=== PATIENT | male | born 1995 | race Caucasian/White ===

== ENCOUNTER 2025-03-19 08:49 | Outpatient (AMB) | payer OTHER, SELFPAY ==
[2025-03-19 08:52] VITALS: BMI 27.2
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
--- OUTSIDE RECORDS SUMMARY | 2025-03-19 09:16 | XMS_ITS | Clinical Summary ---
Author Organization [facility] Address [address] [place] [address] Care Team Providers Care Phlebotomy Instructor Name Role Phone Unavailable Primary Care Provider Unavailabl e Medications Medication Sig Dispensed Refills Start Date End Date Status rivaroxaban (Xarelto) 10 MG tablet Take 1 tablet (10 mg total) by mouth daily. 30 tablet 6 01/11/2024 Active albuterol 108 (90 Base) MCG/ACT inhaler Inhale 2 puffs into the lungs every 6 (six) hours as needed for wheezing. 1 each 1 01/11/2024 Active Active Problems No known active problems Social History Tobacco Use Types Packs/Day Years Used Date Smoking Tobacco: Never Assessed Sex and Gender Information Value Date Recorded Sex Assigned at Not on file Gender Identity Not on file Sexual Orientation Not on file Job Start Date Occupation Industry Not on file Not on file Not on file Last Filed Vital Signs Vital Sign Reading Time Taken Comments Blood Pressure 134/67 01/10/2024 9:27 AM EDT Pulse 61 01/10/2024 9:27 AM EDT Temperature 36.7 C (98.1 F) 01/10/2024 9:27 AM EDT Respiratory Rate - - Oxygen Saturation 97% 01/10/2024 9:27 AM EDT Inhaled Oxygen Concentration - - Weight 84.4 kg (186 lb) 01/10/2024 9:27 AM EDT Height 180.3 cm (5' 11 ) 09/20/2023 8:53 AM EDT Body Mass Index 25.94 09/20/2023 8:53 AM EDT Plan of Treatment Health Maintenance Due Date Last Done Comments Hepatitis C Screening 1994 COVID-19 Vaccine (#1) 1994 Depression Screening 2006 Preventative Health Evaluation 01/17/2012 DTap / Tdap / Td (2 - Td or Tdap) 11/29/2022 11/29/2012 Influenza Vaccine (#1) 2024 Hepatitis B Vaccines Completed 12/09/2016, 07/22/2016, 06/11/2016 Pneumococcal Vaccine Aged Out No long er eligible based on patient's age to complete this topic RSV Ped < 20 months Aged Out No longe r eligible based on patient's age to complete this topic
--- OUTSIDE RECORDS SUMMARY | 2025-03-19 09:16 | XMS_ITS | Clinical Summary ---
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 for severe pain Active albuterol HFA (PROAIR HFA ; PROVENTIL HFA ; VENTOLIN HFA) 90 mcg/actuation inhaler Inhale 2 puffs by mouth every 6 (six) hours if needed for wheezing. 6.7 g 11 03/21/2024 Active apixaban (Eliquis) 5 mg tablet Take 1 tablet (5 mg total) by mouth 2 (two) times a day. 60 each 11 03/21/2024 Active traZODone (DESYREL) 100 mg tablet Take 1 tablet (100 mg total) by mouth. 02/10/2024 Active Xarelto 10 mg tablet TAKE 1 TABLET BY MOUTH EVERY DAY 30 tablet 6 01/15/2025 Active Encounters Date Type Department Care Team Description 02/07/2025 1:59 PM EDT - 02/07/2025 11:59 PM EDT Hospital Encounter [facility] Xray [address] [place] [address] Pain in left lower leg; Pain in right hip Discharge Disposition: Home or Self Care 02/07/2025 1:58 PM EDT - 02/07/2025 11:59 PM EDT Hospital Encounter [facility] Xray [address] [place] [address] Pain in left lower leg; Pain in right hip; Unspecified lump in the right breast, unspecified quadrant Discharge Disposition: Home or Self Care from Last 3 Months Social History Tobacco Use Types Packs/Day Years Used Date Smoking Tobacco: Never Assessed Sex and Gender Information Value Date Recorded Sex Assigned at Not on file Legal Sex Male 3:52 AM EST Gender Identity Not on file Sexual Orientation Not on file Obstetrics History Last Filed Vital Signs Vital Sign Reading Time Taken Comments Blood Pressure 127/61 06/07/2024 8:35 AM EST Pulse 67 06/07/2024 8:35 AM EST Temperature 36.6 C (97.8 F) 06/07/2024 8:35 AM EST Respiratory Rate - - Oxygen Saturation 96% 06/07/2024 8:35 AM EST Inhaled Oxygen Concentration - - Weight 88.5 kg (195 lb) 06/07/2024 8:35 AM EST Height 180.3 cm (5' 11 ) 09/20/2023 8:53 AM EDT Body Mass Index 27.2 09/20/2023 8:53 AM EDT Plan of Treatment Health Maintenance Due Date Last Done Comments Pneumococcal Vaccine: Pediatrics (0 to 5 Years) and At-Risk Patients (6 to 49 Years) (1 of 2 - PCV) 2013 HPV Vaccines (3 - Male 3-dose series) 11/08/2016 06/11/2016, 05/11/2016 Hepatitis C Screening 03/28/2022 Social Influencers of Health Screening 03/28/2022 DTaP,Tdap,and Td Vaccines (2 - Td or Tdap) 11/29/2022 11/29/2012 Depression Screening 04/25/2024 COVID-19 Vaccine ( - season) 2024 02/08/2022, 12/10/2020, 05/14/2020, Additional history exists Influenza Vaccine (#1) 2024 04/22/2022, 2018 Cholesterol Screening (Lipid Panel) 02/05/2030 02/05/2025 RSV Immunization Adult Patients (1 - 1-dose 75+ series) 2069 Hepatitis B Vaccines Completed 12/09/2016, 07/22/2016, 06/11/2016 Meningococcal ACWY Vaccine Aged Out 12/20/2016 N o longer eligible based on patient's age to complete this topic HIV Screening Completed 02/05/2025 HIB Vaccines Aged Out No longer eligi ble based on patient's age to complete this topic Hepatitis A Vaccines Aged Out No long er eligible based on patient's age to complete this topic IPV Vaccines Aged Out No longer eligi ble based on patient's age to complete this topic MMR Vaccines Aged Out No longer eligi ble based on patient's age to complete this topic Meningococcal B Vaccine Aged Out No l onger eligible based on patient's age to complete this topic RSV Immunization Patients Under 20 months Aged Out No longer eligible based on patient's age to complete this topic Varicella Vaccines Aged Out No longer eligible based on patient's age to complete this topic Procedures Procedure Name Priority Date/Time Associated Diagnosis Comments XR HIP 2-3 VIEWS RIGHT Routine 2:45 PM EDT Pain in left lower leg Pain in right hip XR TIBIA FIBULA 2 VIEWS LEFT Routine 02/07/2025 2:44 PM EDT Pain in left lower leg URINALYSIS WITH REFLEX MICROSCOPIC Routine 02/05/2025 1:41 PM EDT Hypogonadism male Routine general medical examination at a health care facility Screening for lipoid disorders Screening for diabetes mellitus Avitaminosis D Screening for thyroid disorder High-risk sexual behavior URINALYSIS WITH REFLEX MICROSCOPIC Routine 02/05/2025 1:41 PM EDT Hypogonadism male Routine general medical examination at a health care facility Screening for lipoid disorders Screening for diabetes mellitus Avitaminosis D Screening for thyroid disorder High-risk sexual behavior CHLAMYDIA TRACHOMATIS AND NEISSERIA GONORRHOEAE PCR Routine 02/05/2025 1:41 PM EDT High-risk sexual behavior CBC WITH AUTO DIFFERENTIAL Routine 02/05/2025 1:33 PM EDT Hypogonadism male Routine general medical examination at a health care facility Screening for lipoid disorders Screening for diabetes mellitus Avitaminosis D Screening for thyroid disorder High-risk sexual behavior THYROID STIMULATING HORMONE Routine 02/05/2025 1:33 PM EDT Hypogonadism male Routine general medical examination at a health care facility Screening for lipoid disorders Screening for diabetes mellitus Avitaminosis D Screening for thyroid disorder High-risk sexual behavior VITAMIN D 25 HYDROXY Routine 02/05/2025 1:33 PM EDT Hypogonadism male Routine general medical examination at a health care facility Screening for lipoid disorders Screening for diabetes mellitus Avitaminosis D Screening for thyroid disorder High-risk sexual behavior HEMOGLOBIN A1C Routine 02/05/2025 1:33 PM EDT Hypogonadism male Routine general medical examination at a [facility] care facility Screening for lipoid disorders Screening for diabetes mellitus Avitaminosis D Screening for thyroid disorder High-risk sexual behavior LIPID PANEL WITH REFLEX TO DIRECT LDL Routine 02/05/2025 1:33 PM EDT Hypogonadism male Routine general medical examination at a [facility] care facility Screening for lipoid disorders Screening for diabetes mellitus Avitaminosis D Screening for thyroid disorder High-risk sexual behavior COMPREHENSIVE METABOLIC PANEL Routine 02/05/2025 1:33 PM EDT Hypogonadism male Routine general medical examination at a [facility] care facility Screening for lipoid disorders Screening for diabetes mellitus Avitaminosis D Screening for thyroid disorder High-risk sexual behavior CBC AND DIFFERENTIAL Routine 02/05/2025 1:33 PM EDT Hypogonadism male Routine general medical examination at a health care facility Screening for lipoid disorders Screening for diabetes mellitus Avitaminosis D Screening for thyroid disorder High-risk sexual behavior LUTEINIZING HORMONE Routine 02/05/2025 1 :33 PM EDT Hypogonadism male Routine general medical examination at a health care facility Screening for lipoid disorders Screening for diabetes mellitus Avitaminosis D Screening for thyroid disorder High-risk sexual behavior FOLLICLE STIMULATING HORMONE Routine 02/05/2025 1:33 PM EDT Hypogonadism male Routine general medical examination at a health care facility Screening for lipoid disorders Screening for diabetes mellitus Avitaminosis D Screening for thyroid disorder High-risk sexual behavior SEX HORMONE BINDING GLOBULIN Routine 02/05/2025 1:33 PM EDT Hypogonadism male Routine general medical examination at a [facility] facility Screening for lipoid disorders Screening for diabetes mellitus Avitaminosis D Screening for thyroid disorder High-risk sexual behavior TESTOSTERONE FREE, BIOAVAILABLE AND TOTAL Routine 02/05/2025 1:33 PM EDT Hypogonadism male Routine general medical examination at a [facility] facility Screening for lipoid disorders Screening for diabetes mellitus Avitaminosis D Screening for thyroid disorder High-risk sexual behavior HEPATITIS B CORE ANTIBODY IGM Routine 02/05/2025 1:33 PM EDT High-risk sexual behavior HERPES SIMPLEX VIRUS 1 AND 2, IGG Routine 02/05/2025 1:33 PM EDT High-risk sexual behavior TREPONEMA PALLIDUM ANTIBODY WITH REFLEX TO RPR AND PARTICLE AGGLUTINATION Routine 02/05/2025 1:33 PM EDT High-risk sexual behavior HIV 1, 2 ANTIBODY, P24 ANTIGEN WITH REFLEX TO DIFFERENTIATION Routine 02/05/2025 1:33 PM EDT High-risk sexual behavior from Last 3 Months Results * XR Hip 2-3 Views Right (02/07/2025 2:45 PM EDT) Anatomical Region Laterality Modality Lower Extremities, Hip Right Radiograp hic Imaging 02/12/2025 7:49 AM EDT Impressions 02/12/2025 7:50 AM EDT No acute findings. There is evidence of calcific tendinitis and calcific bursitis. Code 39907 -------- FINAL REPORT -------- Dictated By: Tom Zaidi Dictated Date: 02/12/2025 07:49 ET Assigned Physician: Tom Zaidi Reviewed and Electronically Signed By: Tom Zaidi Signed Date: 02/12/2025 07:50 ET Workstation ID: [id number] Transcribed By: Self Edit Transcribed Date: 02/12/2025 07:49 ET Narrative 02/12/2025 7:50 AM EDT HISTORY: The patient is a 30-year-old male with right hip pain. No history of trauma is provided. FINDINGS: AP radiograph the pelvis, along with coned-down AP and external rotation-abduction views of the right hip, are obtained. The study demonstrates no fracture, dislocation, arthritic change, or other bony abnormality. Soft tissue calcification just lateral to the hip joints bilaterally consistent with calcific bursitis. There is also a soft tissue calcification adjacent to the greater trochanter of the right femur consistent with calcific tendinitis. Procedure Note Tom Zaidi MD - 02/12/2025 HISTORY: The patient is a 30-year-old male with right hip pain. No historyof trauma is provided. FINDINGS: AP radiograph the pelvis, along with coned-down AP and externalrotation-abduction views of the right hip, are obtained. The studydemonstrates no fracture, dislocation, arthritic change, or other bonyabnormality. Soft tissue calcification just lateral to the hip jointsbilaterally consistent with calcific bursitis. There is also a soft tissuecalcification adjacent to the greater trochanter of the right femurconsistent with calcific tendinitis. IMPRESSION: No acute findings. There is evidence of calcific tendinitis and calcificbursitis. Code 14815 -------- FINAL REPORT -------- Dictated By: Tom Zaidi Dictated Date: 02/12/2025 07:49 ET Assigned Physician: Tom Zaidi Reviewed and Electronically Signed By: Tom Zaidi Signed Date: 02/12/2025 07:50 ET Workstation ID: [id number] Transcribed By: Self Edit Transcribed Date: 02/12/2025 07:49 ET us Chantal DIEZ IMG XR PROCEDURES Final Result * XR Tibia Fibula 2 Views Left (02/07/2025 2:44 PM EDT) Anatomical Region Laterality Modality Lower Extremities, Lower Leg Left Rad iographic Imaging 02/12/2025 7:48 AM EDT Impressions 02/12/2025 7:49 AM EDT Normal examination. -------- FINAL REPORT -------- Dictated By: Tom Zaidi Dictated Date: 02/12/2025 07:48 ET Assigned Physician: Tom Zaidi Reviewed and Electronically Signed By: Tom Zaidi Signed Date: 02/12/2025 07:49 ET Workstation ID: [id number] Transcribed By: Self Edit Transcribed Date: 02/12/2025 07:48 ET Narrative 02/12/2025 7:49 AM EDT HISTORY: The patient is a 30-year-old male with left lower leg pain. No history of trauma is provided. FINDINGS: AP and lateral radiographs of the left tibia and fibula are obtained. The study demonstrates no fracture, dislocation, arthritic change, osteolytic or osteoblastic lesion, or other bony abnormality. No soft tissue abnormality is seen. Procedure Note Tom Zaidi MD - 02/12/2025 HISTORY: The patient is a 30-year-old male with left lower leg pain. Nohistory of trauma is provided. FINDINGS: AP and lateral radiographs of the left tibia and fibula areobtained. The study demonstrates no fracture, dislocation, arthriticchange, osteolytic or osteoblastic lesion, or other bony abnormality. Nosoft tissue abnormality is seen. IMPRESSION: Normal examination. -------- FINAL REPORT -------- Dictated By: Tom Zaidi Dictated Date: 02/12/2025 07:48 ET Assigned Physician: Tom Zaidi Reviewed and Electronically Signed By: Tom Zaidi Signed Date: 02/12/2025 07:49 ET Workstation ID: [id number] Transcribed By: Self Edit Transcribed Date: 02/12/2025 07:48 ET Chantal DIEZ IMG XR PROCEDURES Final Result * Urinalysis with reflex microscopic (02/05/2025 1:41 PM EDT) Specific [place] Urine 1.027 1.003 - 1.030 LAB URINALYSIS - AUTOMATED METHOD 02/05/2025 2:44 PM EDT [facility] pH, Urine 5.5 5.0 - 8.0 pH LAB URINALYSIS - AUTOMATED METHOD 02/05/2025 2:44 PM EDT [facility] Leukocytes, Urine Negative Negative LAB URINALYSIS - AUTOMATED METHOD 02/05/2025 2:44 PM EDT [facility] Nitrite, Urine Negative Negative LAB URINALYSIS - AUTOMATED METHOD 02/05/2025 2:44 PM EDT [facility] Protein, Urine Negative <=Trace mg/dL LAB URINALYSIS - AUTOMATED METHOD 02/05/2025 2:44 PM EDT [facility] Glucose, Urine Negative Negative mg/dL LAB URINALYSIS - AUTOMATED METHOD 02/05/2025 2:44 PM T [facility] Ketones, Urine Negative Negative mg/dL LAB URINALYSIS - AUTOMATED METHOD 02/05/2025 2:44 PM EDT [facility] Urobilinogen, Urine 0.2 0.2 - 1.0 mg/dL LAB URINALYSIS - AUTOMATED METHOD 02/05/2025 2:44 PM T [facility] Bilirubin, Urine Negative Negative LAB URINALYSIS - AUTOMATED METHOD 02/05/2025 2:44 PM T [facility] Blood, Urine Negative Negative LAB URINALYSIS - AUTOMATED METHOD 02/05/2025 2:44 PM EDT [facility] Urine Urine specimen obtained by clean catch procedure / Unknown Non-blood Collection / Unknown 02/05/2025 1:41 PM EDT 02/05/2025 2:38 PM EDT us Stevie Saldana [employer] LAB URINE ORDERABLES Final Re sult [facility] [address] [place] [address], * Chlamydia trachomatis and Neisseria gonorrhoeae molecular study (02/05/2025 1:41 PM EDT) Neisseria gonorrhoeae PCR Negative Negative LAB MOLECULAR DIAGNOSTICS METHOD 02/06/2025 10:04 AM EDT [facility] Chlamydia trachomatis PCR Negative Negative LAB MOLECULAR DIAGNOSTICS METHOD 02/06/2025 10:04 AM EDT [facility] Urine Urine specimen from urethra / Unknown Non-blood Collection / Unknown 02/05/2025 1:41 PM EDT 02/05/2025 2:38 PM EDT us Steive Saldana NP LAB MICROBIOLOGY - GENERAL OR DERABLES Final Result Performing Organization Address [facility]/ZIP Co de Phone Number [facility] [address] [place] [address], [place] [phone] * HIV 1,2 antibody, p24 antigen with reflex to differentiation (02/05/2025 1:33 PM EDT) Pathologist [facility] HIV Combo AB/AG Negative Negative LAB CHEMISTRY METHOD 02/05/2025 6:56 PM EDT [facility] Blood Venous blood specimen / Unknown Venipuncture / Unknown 02/05/2025 1:33 PM EDT 02/05/2025 2:37 PM EDT Narrative [facility] - 02/05/2025 6:56 PM EDT This assay is a 4th generation assay allowing for earlier detection of HIV infection by detecting the presence of the HIV-1 p24 antigen as well as the traditional antibodies to HIV type 1 (including group O) and type 2. Use of a 4th generation assay is the current CDC recommendation for HIV screening. us Stevie Saldana NP LAB BLOOD ORDERABLES Final Re sult Performing Organization Address [facility]/ZIP Co de Phone Number [facility] [address] [place] [address], [place] [phone] * Treponema pallidum antibody with reflex to RPR and particle agglutination (02/05/2025 1:33 PM EDT) T. Pallidum Antibodies Negative Negative LAB CHEMISTRY METHOD 02/05/2025 8:46 PM EDT [facility] Blood Venous blood specimen / Unknown Venipuncture / Unknown 02/05/2025 1:33 PM EDT 02/05/2025 2:37 PM EDT us Stevie Saldana [employer] LAB BLOOD ORDERABLES Final Re sult [facility] [address] [place] [address], [place] [phone] * Lipid panel with reflex to direct LDL (02/05/2025 1:33 PM EDT) Cholesterol 169 0 - 200 mg/dL LAB CHEMISTRY METHOD 02/05/2025 5:59 PM EDT [facility] Triglycerides 54 0 - 150 mg/dL LAB CHEMISTRY METHOD 02/05/2025 5:59 PM EDT [facility] HDL 58 >=40 mg/dL LAB CHEMISTRY METHOD 02/05/2025 5:59 PM EDT [facility] LDL Calculated 100 0 - 100 mg/dL LAB CHEMISTRY METHOD 02/05/2025 5:59 PM EDT [facility] Comment:Estimated LDL Calcul ated using equation: Total cholesterol - HDL cholesterol - (Triglycerides/5) VLDL Cholesterol Mina 10.8 mg/dL LAB CHEMISTRY METHOD 02/05/2025 5:59 PM EDT [facility] Non HDL Chol. (LDL+VLDL) 111 <145 mg/dL LAB CHEMISTRY METHOD 02/05/2025 5:59 PM EDT [facility] Chol/HDL Ratio 2.9 0.0 - 4.4 LAB CHEMISTRY METHOD 02/05/2025 5:59 PM EDT [facility] Blood Venous blood specimen / Unknown Venipuncture / Unknown 02/05/2025 1:33 PM EDT 02/05/2025 2:37 PM EDT us Stevie Saldana NP LAB BLOOD ORDERABLES Final Re sult [facility] [address] [place] [address], [place] [phone] * Testosterone free, bioavailable and total (02/05/2025 1:33 PM EDT) Testosterone 384 229 - 902 ng/dL LAB CHEMISTRY METHOD 02/05/2025 8:35 PM EDT [facility] Testosterone, Free 8.3 4.6 - 22.4 ng/dL LAB CHEMISTRY METHOD 02/05/2025 8:35 PM EDT [facility] Testosterone, Bioavailable 199 110 - 575 ng/dL LAB CHEMISTRY METHOD 02/05/2025 8:35 PM EDT [facility] Sex Hormone Binding 28.9 See Comment nmol/L LAB CHEMISTRY METHOD 02/05/2025 8:35 PM EDT [facility] Comment: FEMALES: pre-menopausal 10.8 - >180 post-menopausal 23.2 - 159.1 MALES: 21-49 years 14.6 - 94.6 50-89 years 21.6 - 113.1 CHILDREN: No established reference range Over the counter supplements containing high doses of biotin may interfere with this assay. If interference is suspected, patients should be retested after refraining from biotin supplements for 72 hours. Albumin 4.4 3.2 - 5.0 g/dL LAB CHEMISTRY METHOD 02/05/2025 8:35 PM EDT [facility] Blood Venous blood specimen / Unknown Venipuncture / Unknown 02/05/2025 1:33 PM EDT 02/05/2025 2:37 PM EDT us Stevie M Borhot [employer] LAB BLOOD ORDERABLES Final Re sult Performing Organization Address [facility]/ZIP Co de Phone Number [facility] [address] [place] [address], * Herpes simplex virus 1 and 2, IgG (02/05/2025 1:33 PM EDT) HSV 1 IgG 0.15 <=0.90 index namrata LAB CHEMISTRY METHOD 02/06/2025 9:24 AM EDT [facility] HSV-1 IgG Interpretation Negative Negative LAB CHEMISTRY METHOD 02/06/2025 9:24 AM EDT [facility] HSV 2 IgG 0.15 <=0.90 index namrata LAB CHEMISTRY METHOD 02/06/2025 9:24 AM EDT [facility] HSV-2 IgG Interpretation Negative Negative LAB CHEMISTRY METHOD 02/06/2025 9:24 AM EDT [facility] Blood Venous blood specimen / Unknown Venipuncture / Unknown 02/05/2025 1:33 PM EDT 02/05/2025 2:37 PM EDT Stevie Saldana [employer] LAB BLOOD ORDERABLES Final Re sult Performing Organization Address [facility]/ZIP Co de Phone Number [facility] [address] [place] [address], [place] [phone] * Sex hormone binding globulin (02/05/2025 1:33 PM EDT) Sex Hormone Binding 28.9 See Comment nmol/L LAB CHEMISTRY METHOD 02/05/2025 8:35 PM EDT [facility] Comment: FEMALES: pre-menopausal 10.8 - >180 post-menopausal 23.2 - 159.1 MALES: 21-49 years 14.6 - 94.6 50-89 years 21.6 - 113.1 CHILDREN: No established reference range Over the counter supplements containing high doses of biotin may interfere with this assay. If interference is suspected, patients should be retested after refraining from biotin supplements for 72 hours. Blood Venous blood specimen / Unknown Venipuncture / Unknown 02/05/2025 1:33 PM EDT 02/05/2025 2:37 PM EDT us Stevie Saldana [employer] LAB BLOOD ORDERABLES Final Re sult [facility] [address] [place] [address], [place] [phone] * (ABNORMAL) CBC auto differential (02/05/2025 1:33 PM EDT) WBC 11.1(H) 4.8 - 10.8 K/mcL LAB HEMETOLOGY METHOD 02/05/2025 2:48 PM EDT [facility] RBC 5.60(H) 4.50 - 5.50 M/mcL LAB HEMETOLOGY METHOD 02/05/2025 2:48 PM EDT [facility] Hemoglobin 16.8 13.5 - 17.5 g/dL LAB HEMETOLOGY METHOD 02/05/2025 2:48 PM EDT [facility] Hematocrit 50.2 42.0 - 54.0 % LAB HEMETOLOGY METHOD 02/05/2025 2:48 PM EDT [facility] MCV 90.3 79.0 - 98.0 FL LAB HEMETOLOGY METHOD 02/05/2025 2:48 PM EDT [facility] MCH 30.2 27.0 - 32.0 pcg LAB HEMETOLOGY METHOD 02/05/2025 2:48 PM EDT [facility] MCHC 33.5 32.0 - 37.0 g/dL LAB HEMETOLOGY METHOD 02/05/2025 2:48 PM EDT [facility] RDW 12.0 11.0 - 15.0 % LAB HEMETOLOGY METHOD 02/05/2025 2:48 PM EDT [facility] Platelets 252 130 - 400 K/mcL LAB HEMETOLOGY METHOD 02/05/2025 2:48 PM EDT [facility] MPV 10.6 7.0 - 11.0 FL LAB HEMETOLOGY METHOD 02/05/2025 2:48 PM EDT [facility] NRBC 0.0 <1.0 % LAB HEMETOLOGY METHOD 02/05/2025 2:48 PM EDT [facility] NRBC Absolute 0.00 <0.10 K/mcL LAB HEMETOLOGY METHOD 02/05/2025 2:48 PM EDT [facility] Neutrophils Relative 62.9 % LAB HEMETOLOGY METHOD 02/05/2025 2:48 PM EDT [facility] Lymphocytes Relative 28.5 % LAB HEMETOLOGY METHOD 02/05/2025 2:48 PM EDT [facility] Monocytes Relative 6.6 % LAB HEMETOLOGY METHOD 02/05/2025 2:48 PM EDT [facility] Eosinophils Relative 1.2 % LAB HEMETOLOGY METHOD 02/05/2025 2:48 PM EDT [facility] Basophils Relative 0.4 % LAB HEMETOLOGY METHOD 02/05/2025 2:48 PM [facility] Immature Granulocytes Relative 0.4 % LAB HEMETOLOGY METHOD 02/05/2025 2:48 PM EDT [facility] Neutrophils Absolute 7.01(H) 1.50 - 7.00 K/mcL LAB HEMETOLOGY METHOD 02/05/2025 2:48 PM EDT [facility] Lymphocytes Absolute 3.17 1.00 - 5.00 K/mcL LAB [facility]EMETOLOGY [facility] Monocytes Absolute 0.73 0.20 - 1.00 K/mcL LAB HEMETOLOGY METHOD 02/05/2025 2:48 PM EDT [facility] Eosinophils Absolute 0.13 0.00 - 0.50 K/[facility] LAB HEMETOLOGY METHOD 02/05/2025 2:48 PM EDT [facility] Basophils Absolute 0.05 0.00 - 0.20 K/[facility] LAB HEMETOLOGY METHOD 02/05/2025 2:48 PM EDT [facility] Immature Granulocytes Absolute 0.04(H) 0.00 - 0.03 K/[facility] LAB HEMETOLOGY METHOD 02/05/2025 2:48 PM EDT [facility] Blood Venous blood specimen / Unknown Venipuncture / Unknown 02/05/2025 1:33 PM EDT 02/05/2025 2:39 PM EDT Stevie Saldana [employer] LAB BLOOD ORDERABLES Final Re sult Performing Organization Address [facility] de Phone Number [facility] [address] [place] [address], [place] [phone] * Hepatitis B core antibody IgM (02/05/2025 1:33 PM EDT) Hep B Core IgM Negative Negative LAB CHEMISTRY METHOD 02/05/2025 6:56 PM EDT [facility] Blood Venous blood specimen / Unknown Venipuncture / Unknown 02/05/2025 1:33 PM EDT 02/05/2025 2:37 PM EDT Narrative [facility] - 02/05/2025 6:56 PM EDT Over the counter supplements containing high doses of biotin may interfere with this assay. If interference is suspected, patients shoud be retested after refraining from biotin supplements for 72 hours. us Stevie Saldana NP LAB BLOOD ORDERABLES Final Re sult Performing Organization Address [facility]/ZIP Co de Phone Number [facility] [address] [place] [address], [place] [phone] * Vitamin D 25 hydroxy (02/05/2025 1:33 PM EDT) Vit D, 25-Hydroxy 36.1 30.0 - 80.0 ng/mL LAB CHEMISTRY METHOD 02/05/2025 6:16 PM EDT [facility] Blood Venous blood specimen / Unknown Venipuncture / Unknown 02/05/2025 1:33 PM EDT 02/05/2025 2:37 PM EDT Stevie Saldana [employer] LAB BLOOD ORDERABLES Final Re sult Performing Organization Address City/[facility]/ZIP Co de Phone Number [facility] [facility] [address] [place] [address], [place] [phone] * Thyroid stimulating hormone (02/05/2025 1:33 PM EDT) Pathologist [facility] TSH 0.46 0.40 - 4.00 mcIU/mL LAB CHEMISTRY METHOD 02/05/2025 8:36 PM EDT [facility] Blood Venous blood specimen / Unknown Venipuncture / Unknown 02/05/2025 1:33 PM EDT 02/05/2025 2:37 PM EDT Stevie Saldana [employer] LAB BLOOD ORDERABLES Final Re sult [facility] [address] [place] [address], [place] [phone] * Hemoglobin A1c (02/05/2025 1:33 PM EDT) Pathologist [facility] Hemoglobin A1C 5.2 <6.5 % LAB CHEMISTRY METHOD 02/05/2025 9:58 PM EDT [facility] Mean Bld Glu Estim. 103 mg/dL LAB CHEMISTRY METHOD 02/05/2025 9:58 PM EDT [facility] Blood Venous blood specimen / Unknown Venipuncture / Unknown 02/05/2025 1:33 PM EDT 02/05/2025 2:39 PM EDT us Stevie Saldana [employer] LAB BLOOD ORDERABLES Final Re sult [facility] [address] [place] [address], [place] [phone] * Luteinizing hormone (02/05/2025 1:33 PM EDT) Luteinizing Hormone 4.0 1.2 - 10.6 mIU/mL LAB CHEMISTRY METHOD 02/05/2025 5:59 PM EDT [facility] Blood Venous blood specimen / Unknown Venipuncture / Unknown 02/05/2025 1:33 PM EDT 02/05/2025 2:37 PM EDT us Stevie Saldana NP LAB BLOOD ORDERABLES Final Re sult Performing Organization Address [facility]/ZIP Co de Phone Number [facility] [address] [place] [address], [place] [phone] * Follicle stimulating hormone (02/05/2025 1:33 PM EDT) Follicle Stimulating Hormone 2.8 0.7 - 10.8 mIU/mL LAB CHEMISTRY METHOD 02/05/2025 7:43 PM EDT [facility] Blood Venous blood specimen / Unknown Venipuncture / Unknown 02/05/2025 1:33 PM EDT 02/05/2025 2:37 PM EDT Stevie Saldana [employer] LAB BLOOD ORDERABLES Final Re sult [facility] [address] [place] [address], [place] [phone] * Comprehensive metabolic panel (02/05/2025 1:33 PM EDT) Sodium 140 133 - 145 mmol/L LAB CHEMISTRY METHOD 02/05/2025 5:59 PM [facility] Potassium 4.2 3.5 - 5.5 mmol/L LAB CHEMISTRY METHOD 02/05/2025 5:59 PM [facility] Chloride 109 96 - 110 mmol/L LAB CHEMISTRY METHOD 02/05/2025 5:59 PM [facility] CO2 26 21 - 32 mmol/L LAB CHEMISTRY METHOD 02/05/2025 5:59 PM [facility] Anion Gap 5 3 - 11 LAB CHEMISTRY METHOD 02/05/2025 5:59 PM [facility] Glucose 87 70 - 100 mg/dL LAB CHEMISTRY METHOD 02/05/2025 5:59 PM [facility] BUN 23 5 - 25 mg/dL LAB CHEMISTRY METHOD 02/05/2025 5:59 PM [facility] Creatinine 0.92 0.70 - 1.30 mg/dL LAB CHEMISTRY METHOD 02/05/2025 5:59 PM [facility] eGFR 114 >=60 mL/min/1. 73m2 LAB CHEMISTRY METHOD 02/05/2025 5:59 PM [facility] Comment:Calculation based on the Chronic Kidney Disease Epidemiology Collaboration (CKD-EPI) equation refit without adjustment for race. BUN/Creatinine Ratio 25.0 LAB CHEMISTRY METHOD 02/05/2025 5:59 PM [facility] Calcium 9.5 8.5 - 10.5 mg/dL LAB CHEMISTRY METHOD 02/05/2025 5:59 PM [facility] AST (SGOT) 20 10 - 42 unit/L LAB CHEMISTRY METHOD 02/05/2025 5:59 PM [facility] ALT (SGPT) 27 10 - 60 unit/L LAB CHEMISTRY METHOD 02/05/2025 5:59 PM EDT [facility] Alkaline Phosphatase 52 42 - 121 unit/L LAB CHEMISTRY METHOD 02/05/2025 5:59 PM EDT [facility] Total Protein 7.1 6.0 - 8.0 g/dL LAB CHEMISTRY METHOD 02/05/2025 5:59 PM EDT [facility] Albumin 4.4 3.2 - 5.0 g/dL LAB CHEMISTRY METHOD 02/05/2025 5:59 PM EDT [facility] Total Bilirubin 1.2 0.0 - 1.4 mg/dL LAB CHEMISTRY METHOD 02/05/2025 5:59 PM EDT [facility] Blood Venous blood specimen / Unknown Venipuncture / Unknown 02/05/2025 1:33 PM EDT 02/05/2025 2:37 PM EDT us Stevie Saldana [employer] LAB BLOOD ORDERABLES Final Re sult [facility] [address] [place] [address], from Last 3 Months Insurance [facility] Care Teams Bread Wrapper Relationship Specialty Start Date End Date Marko Solorzano DO [address] [place] [id number] PCP - General Internal Medicine 01/01/22
--- OUTSIDE RECORDS SUMMARY | 2025-03-19 09:16 | XMS_ITS | Encounter Summary ---
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 Name Role Phone Avtar Navarro MD Primary Care Provider Encounter Details Date Type Department Care Team (Late st Contact Info) Description 01/12/2023 Procedure [facility], Ct Scan - [address] [id number] Social History Tobacco Use Types Packs/Day Years Used Date Smoking Tobacco: Never Smokeless Tobacco: Never Comments:marijuana Alcohol Use Standard Drinks/Week Comments No [...] on file Sexual Orientation Not on file documented as of this encounter Functional Status * Calculated C-SSRS Risk Score (Lifetime/Recent) Answer Date of Assessment Author No Risk Indicated 01/12/2023 11:04 PM EDT Lela Colón, NUBIA * Morning Sun Suicide Severity Rating Scale (Screener/Recent Self-Report) Question Answer Date of Assessment Author 1. Wish to be (Past 1 Month) No 01/12/2023 11:04 PM EDT Khalif Oneill, NUBIA 2. Non-Specific Active Suici sebastian Thoughts (Past 1 Month) No 01/12/2023 11:04 PM EDT Aure Oneill, NUBIA 6. Suicidal Behavior (Lifetime) No 11:04 PM EDT Lela Oneill, NUBIA documented as of this encounter Plan of Treatment Not on file documented as of this encounter Visit Diagnoses Not on filedocumented in this encounter Additional Health Concerns Infection Onset Date Last Indicated Resolved Time CoV-Risk 01/12/2023 01/12/2023 01/23/2023 1:22 AM EDT documented as of this encounter Care Teams Mat Cleaning Machine Operator Relationship Specialty Start Date End Date Avtar Navarro MD [address] [place] [id number] PCP - General 06/11/14 documented as of this encounter Additional Source Comments The information contained in this document represents components of the legal health record. It is not the complete legal health record.[facility]
== END 2025-03-19 09:19 | disposition home or self-care (01) ==
LOC: HO.HPHYS 08:49
PROVIDERS: PCP Internal Medicine; Visit Provider Physical Medicine & Rehabilitation
DX: S73.191D Other sprain of right hip, subsequent encounter (principal); G03.9 Meningitis, unspecified
CPT/HCPCS: 99214